=== PATIENT | female | born 1995 | race Caucasian/White ===

== ENCOUNTER 2017-07-22 12:20 | Emergency (ER) | payer BC ==
[~2017-07-22] VITALS: Ht 162.6 cm; Wt 53.4 kg
[2017-07-22 12:25] VITALS: TEMP 36.9; Ht 162.6 cm; Wt 53.4 kg
[2017-07-22] MEDS ORDERED: SODIUM CHLORIDE 0.9% 1000ML 1,000 ML IV STA (12:42)
[2017-07-22] MEDS ORDERED: METOCLOPRAMIDE HCL INJ 5 MG/ML 2 ML VIAL IV STA (12:42)
--- NOTE | 2017-07-22 12:48 | EMERGENCY ROOM VISIT NOTE ---
History Report prepared by Luisaibefrain: Jackson Garcia Under the Supervision of: Dr. Darryn Clancy M.D. First contact with patient: 12:29 Chief Complaint: NASAL PAIN/INJURY Stated Complaint: NOSE INJURY History of Present Illness The patient is a 22 year old female who presents to the Emergency Room with complaints of constant nasal pain s/p fall occurring shortly prior to arrival. She states that she tripped while getting out of her bed, and hit her face on a wooden chair. She did not lose consciousness. The patient also complains of lightheadedness. The patient's friend states that the patient passed out about an hour after the fall while sitting and talking on the phone. [facility] referred the patient to the ED following this episode for a head CT. The patient states that she felt dizzy and nauseated before she passed out, but does not remember actually passing out. She admits to drinking about 4 drinks of alcohol last night. She denies any other drug use. The patient denies any trauma last night. She currently denies any neck pain, leg pain, or back pain. She denies any chance of . Source of History: patient Onset: Shortly prior to arrival Position: nose Timing: constant Associated Symptoms: No LOC, No neck pain, No back pain Note: The patient denies any leg pain. She also complains of lightheadedness. Review of Systems See HPI for pertinent positives and negatives. A total of ten systems were reviewed and were otherwise negative. Past Medical & Surgical Medical Problems: (1) No Known Active Medical Problems Family History No pertinent family history stated. Social History Smoking Status: Never Smoker Housing Status: lives with roommate Occupation Status: [employer] student Current/Historical Medications Miscellaneous Medications Ibuprofen (Advil), 200 MG PO Lamotrigine (Lamictal), 25 MG PO Quetiapine Fumarate (Seroquel), 25 MG PO Allergies Coded Allergies: No Known Allergies (Unverified , 07/22/17) Physical Exam Vital Signs Date Time Temp Pulse Resp B/P (MAP) Pulse Ox O2 Delivery O2 Flow Rate FiO2 07/22/17 15:50 85 16 112/76 100 07/22/17 12:25 36.9 94 20 117/81 100 Room Air Physical Exam GENERAL: Awake, alert, well-appearing, in no distress HENT: Normocephalic. 2 cm frontal hematoma with additional swelling at the bridge of the nose extending into the nasal aspect of the right orbital area. Anterior chamber of the right eye is clear. EOMI. No tenderness to the maxillary regions. EYES: Normal conjunctiva. Sclera non-icteric. NECK: Supple. No nuchal rigidity. FROM. No JVD. RESPIRATORY: Clear to auscultation. CARDIAC: Regular rate, normal rhythm. Extremities warm and well perfused. Pulses equal. ABDOMEN: Soft, non-distended. No tenderness to palpation. No rebound or guarding. No masses. RECTAL: Deferred. MUSCULOSKELETAL: Chest examination reveals no tenderness. The back is symmetrical on inspection without obvious abnormality. There is no CVA tenderness to palpation. No joint edema. LOWER EXTREMITIES: Calves are equal size bilaterally and non-tender. No edema. No discoloration. NEURO: Normal sensorium. No sensory or motor deficits noted. SKIN: No rash or jaundice noted. Medical Decision & Procedures ER Provider Diagnostic Interpretation: Radiology results as stated below per my review and radiologist interpretation: HEAD WITHOUT CONTRAST (CT) FINDINGS: Revenue Field Auditor topogram: Unremarkable. Ventricles and sulci normal in size. Brain parenchyma normal in appearance with preserved escudero-white differentiation. No mass effect or midline shift. No hemorrhage or acute territorial infarct. No extra-axial fluid collection. Paranasal sinuses and mastoid air cells clear. Calvarium intact. Subcutaneous emphysema noted over the right nasal region. The nasal bones are not included within the [id number]. IMPRESSION: 1. No acute intracranial pathology. 2. Subcutaneous emphysema over the right nasal region likely indicating laceration. The nasal bones are not included within the [id number]. Electronically signed by: Branden Jesus M.D. NASAL BONES MIN 3 VIEWS FINDINGS: No nasal bone fracture is identified by radiography. A small amount of subcutaneous gas overlying the upper nose and frontal sinuses is noted. IMPRESSION: 1. No nasal bone fracture identified by radiography. 2. Redemonstration of a small amount of subcutaneous gas overlying the upper nose and frontal sinuses, as shown on prior head CT. Electronically signed by: Jaya Malagon M.D. Medications Administered Medications (Trade) Dose Ordered Sig/Kimberly Route Start Time Stop Time Status Last Admin Dose Admin Sodium Chloride 1,000 ml @ 999 mls/hr Q1H1M STAT IV 07/22/17 12:42 07/22/17 13:42 DC 07/22/17 12:52 999 MLS/HR Metoclopramide HCl (Reglan Inj) 10 mg NOW STAT IV 07/22/17 12:42 07/22/17 12:44 DC 07/22/17 12:52 10 MG Procedure Location: bridge of nose Total length: 1.5 cm Complexity: simple Verbal consent was obtained after the risks and benefits were explained, including but not limited to bleeding, scarring, infection, pain, and bone/joint /nerve damage. At this time, the risks of the procedure are less than the risks of NOT performing the procedure. A time out was taken and the correct patient and site identified. The target area was anesthetized with 2 ml of 1% lidocaine without epinephrine. Copious irrigation was performed using saline. The wound was explored for foreign bodies and none found. Examination revealed no injury to deep structures such as tendons, bone, or significant blood vessels. Debridement was not performed. The wound edges were approximated using 3, 5-0 simple interrupted nylon sutures. Hemostasis and excellent approximation was achieved. Antibacterial ointment and a sterile dressing applied. Detailed wound care instructions and signs and symptoms of infection reviewed with the patient. No complications and the patient tolerated the procedure well. ED Course 1233: The patient was evaluated in room C7. A complete history and physical exam was performed. 1242: Ordered Reglan Inj 10 mg IV, Sodium Chloride 1000 ml @ 999 mls/hr IV. 1500: I attempted to steri-strip the patient's nasal laceration. The wound appeared to be gaping slightly. 1504: Ordered Buffered Lidocaine 1% Inj 20 mL INFIL. I conducted the laceration repair. See the procedure note for details. 1540: I reevaluated the patient. Discussed results and discharge instructions: she verbalized understanding and agreement. The patient is ready for discharge. Medical Decision I reviewed the patient's past medical history, medications, and the nursing notes as described above. Triage Nursing notes reviewed. The patient's presentation and history were concerning for concussion, nasal/ orbital fracture, orthostatic vasovagal syncope, less likely ICH, and dehydration. Patient is a 22-year-old woman who presents to emergency department with headache and episode of syncope after presenting to urgent care after she fell this morning hitting her head on her bedpost per history of present illness. Denies any LOC or nausea vomiting right after the incident. Moreover, when an urgent care patient was standing talking on the phone and suddenly felt lightheaded and nauseated and syncopized. Per report likely vasovagal/ orthostatic. On arrival here the patient reports mild headache and lightheadedness. On exam patient is neurologically intact with no cranial nerve deficits, cerebellar is intact, gait is stable. Patient does have swelling at the bridge of nose extending to the right orbit. Otherwise anterior chamber is grossly clear, EOMI. Also has a frontal hematoma approximately 2 cm. Considering hematoma nasal swelling with unclear deformity. Discussed with patient recommendation for CT scan to assess for any intracranial injury but also assess for possible nasal fracture or orbital fracture. We will provide IV hydration and Reglan for symptomatic relief. CT was negative for intracranial injury. Nasal bones not fully visualized so plain films done showing no nasal fracture. Laceration to bridge of nose reexamined with Steri-Strips off and shows significant gape with facial movements, thus 3 sutures were placed per procedure note. Findings and plan for follow-up with concussion instructions d/w patient. Patient agreeable and d/c'd per discharge instructions. Medication Reconcilliation Current Medication List: was personally reviewed by me Blood Pressure Screening Patient's blood pressure: Normal blood pressure Blood pressure disposition: Did not require urgent referral Impression Primary Impression: Concussion Additional Impression: Laceration Scribe Attestation The scribe's documentation has been prepared under my direction and personally reviewed by me in its entirety. I confirm that the note above accurately reflects all work, treatment, procedures, and medical decision making performed by me. Departure Information Dispostion Home / Self-Care Referrals No Doctor, Assigned (PCP) Patient Instructions Concussion, ED Laceration Facial Sutr Tape, My [employer] Additional Instructions Please follow up with your primary care physician in the next 4-5 days for re- evaluation and suture removal. Your exam, CT scan, and xray did not show signs of an emergent condition at this time. Avoid sensory stimulus to minimize any concussion symptoms. Return to the emergency department for worsening symptoms as described in the accompanying instructions. Problem Qualifiers
--- NOTE | 2017-07-22 13:13 | DIAGNOSTIC IMAGING REPORT ---
HEAD WITHOUT CONTRAST (CT) CLINICAL HISTORY: 22 years-old Female presenting with Fall-MAXWELL, eval for nasal/skull fx. TECHNIQUE: Multidetector CT imaging of the head was performed without the use of intravenous contrast. IV contrast: None. A dose lowering technique was used consistent with the principles of ALARA (as low as reasonably achievable). COMPARISON: None. CT DOSE (mGy.cm): The estimated cumulative dose is 638.56 mGycm. FINDINGS: Licensed Physical Therapist Assistant topogram: Unremarkable. Ventricles and sulci normal in size. Brain parenchyma normal in appearance with preserved escudero-white differentiation. No mass effect or midline shift. No hemorrhage or acute territorial infarct. No extra-axial fluid collection. Paranasal sinuses and mastoid air cells clear. Calvarium intact. Subcutaneous emphysema noted over the right nasal region. The nasal bones are not included within the [id number]. IMPRESSION: 1. No acute intracranial pathology. 2. Subcutaneous emphysema over the right nasal region likely indicating laceration. The nasal bones are not included within the [id number]. Electronically signed by: Branden Jesus M.D. 07/22/2017 1:12 PM Dictated Date/Time: 07/22/2017 1:09 PM
[2017-07-22] MEDS ORDERED: LAMO25TA PO (13:18)
[2017-07-22] MEDS ORDERED: QUET1TAB30 PO (13:18)
[2017-07-22] MEDS ORDERED: IBUP-1050 PO (13:19)
--- NOTE | 2017-07-22 14:24 | DIAGNOSTIC IMAGING REPORT ---
NASAL BONES MIN 3 VIEWS CLINICAL HISTORY: Nasal pain and swelling following injury. COMPARISON STUDY: No previous studies for comparison. FINDINGS: No nasal bone fracture is identified by radiography. A small amount of subcutaneous gas overlying the upper nose and frontal sinuses is noted. IMPRESSION: 1. No nasal bone fracture identified by radiography. 2. Redemonstration of a small amount of subcutaneous gas overlying the upper nose and frontal sinuses, as shown on prior head CT. Electronically signed by: Jaya Malagon M.D. 07/22/2017 2:23 PM Dictated Date/Time: 07/22/2017 2:21 PM
[2017-07-22] MEDS ORDERED: XYLOCAINE 1%/SOD BICARB 20 ML VIAL INFIL ONE ×2 (15:05→15:15)
[2017-07-22 15:50] VITALS: BP 112/76; PULSE 85; O2SAT 100
== END 2017-07-22 15:51 | disposition home or self-care (01) ==
LOC: C.EDB 12:23 → C.EDC 15:51
DX: S06.0X0A Concussion without loss of consciousness, initial encounter (principal); S01.21XA Laceration without foreign body of nose, initial encounter; W06.XXXA Fall from bed, initial encounter; Y92.003 Bedroom of unspecified non-institutional (private) residence as the place of occurrence of the external cause